=== PATIENT | female | born 1940 | race Caucasian/White ===

== ENCOUNTER 2024-03-31 16:40 | Inpatient (IN) | payer MEDICARE ==
[~2024-03-31] VITALS: Ht 162.6 cm; Wt 61.8 kg
[2024-03-31 16:30] VITALS: BP 175/102; PULSE 95; TEMP 100.1
[~2024-03-31 16:40] MED LIST: FERROUS SU325 MG/TAB PO; FOLIC ACID 40400 MCG PO; GLYCOLAX17 GM/DOSE PO; HCTZ 25MG25 MG PO; SINGULAIR10 MG PO; SPIRIVA HANDIH18 MCG IH; THEO-24 30300 MG/CAP PO; THEO-24300 MG PO; VENTOLIN0.09 MG IH; VITAMIN C BUFF500 MG PO
[2024-03-31] MEDS ORDERED: CALCIUM 600-D 61 TAB PO (16:58)
[2024-03-31] MEDS ORDERED: ULTRAM 50MG TAB50 MG PO (16:59)
[2024-03-31] MEDS ORDERED: CELEXA 20MG20 MG/TAB PO (17:00)
[2024-03-31] MEDS ORDERED: TYLENOL 500MG500 MG PO (17:00)
[2024-03-31] MEDS ORDERED: COZAAR 50MG50 MG/TAB PO (17:02)
[2024-03-31] MEDS ORDERED: PHENERGAN W/CO120 M1 PO (17:04)
[2024-03-31] MEDS ORDERED: BROVANA15 MCG/2 M IH (17:04)
[2024-03-31] MEDS ORDERED: PULMICORT0.5 MG/2 M IH (17:05)
[2024-03-31] MEDS ORDERED: PROAIR HFA0.09 MG/AC IH (17:07)
[2024-03-31] MEDS ORDERED: RT SPIRIVA18 MCG IH (17:08)
[2024-03-31] MEDS ORDERED: K-DUR20 MEQ PO (17:09)
[2024-03-31] MEDS ORDERED: CARTIA XT120 MG PO (17:10)
[2024-03-31] MEDS ORDERED: MIRALAX PA17 GM/Dose PO (17:11)
[2024-03-31] MEDS ORDERED: TESSALON P100 MG/CAP PO (17:11)
[2024-03-31] MEDS ORDERED: Morphine 4 MG/ML VIAL IV PRN (17:15)
[2024-03-31] MEDS ORDERED: Naloxone 0.4 MG/ML VIAL IV PRN (17:15)
[2024-03-31] MEDS ORDERED: oxyCODONE 5 MG TAB PO PRN (17:15)
[2024-03-31] MEDS ORDERED: D5 1/2 NS 1,000 ML IV SCH (17:15)
[2024-03-31] MEDS ORDERED: Polyethylene Glycol 3350 17 GM PDS PO SCH (17:52)
[2024-03-31] MEDS ORDERED: Albuterol/Ipratropium 3 MG-0.5 MG/3 ML Neb Soln IH PRN (18:00)
[2024-03-31] MEDS ORDERED: traMADol 50 MG TAB PO PRN (18:00)
[2024-03-31 18:10] VITALS: BP 158/93
[2024-03-31] MEDS ORDERED: Acetaminophen 500 MG TAB PO SCH (18:12)
[2024-03-31] MEDS ORDERED: Formoterol Neb Soln 20 MCG/2 ML UD IH SCH (19:00)
[2024-03-31] MEDS ORDERED: Budesonide Neb Susp 0.5 MG/2 ML AMP IH SCH (19:00)
[2024-03-31 19:32] VITALS: BP 149/81; PULSE 93; TEMP 98.3
[2024-03-31 20:00] VITALS: BP_SYST 149
[2024-03-31] MEDS ORDERED: Theophylline ER (24-HR) 300 MG TAB-CAP PO SCH (21:00)
[2024-03-31] MEDS ORDERED: Calcium Carb/Vit D3 500 mg-200 Units TAB PO SCH (21:00)
[2024-03-31 21:38] LABS: BASO % 0.3 % (0.0-2.0); GRAN # 9.3 K/mm3 (1.4-6.5); GRAN % 86.9 % (42.2-75.2); HEMATOCRIT 37.3 % (37.0-47.0); LYMPH # 0.7 K/mm3 (1.2-3.4); LYMPH % 6.1 % (20.0-51.0); MEAN CELL VOLUME 97 fl (80.0-100.0); MEAN CORPUSCULAR HEMOGLOBIN 31 pg (27-31); MEAN CORPUSCULAR HGB CONC 32 g/dl (33.0-37.0); MEAN PLATELET VOLUME 11.7 fl (7.4-10.4); MONO # 0.7 K/mm3 (0.1-0.6); MONO % 6.4 % (1.7-9.3); PLATELET COUNT 144 K/mm3 (130-400); RED BLOOD COUNT 3.83 M/mm3 (4.10-5.30); REDCELL DISTRIBUTION WIDTH-CV 12.6 % (11.5-14.5)
[2024-03-31 21:40] LABS: PROTHROMBIN TIME 11.3 SECONDS (9.7-12.8)
[2024-03-31 23:10] VITALS: BP 158/73; PULSE 89; TEMP 98
[2024-04-01] VITALS (17 sets, daily range): BP systolic 92–158; BP diastolic 54–80; PULSE 71–112; TEMP 97.7–100.2
[2024-04-01 06:13] LABS: HEMOGLOBIN 10.4 g/dl (12.5-16.0)
[2024-04-01 06:27] LABS: HEMATOCRIT 32.7 % (37.0-47.0)
--- NOTE | 2024-04-01 07:50 | NUR ---
PT RESTING IN BED, ALERT AND ORIENTED X1 TO SELF. PT IS VERY FORGETFUL. HAD TO EXPLAIN TO PT THAT HER HIP WAS BROKEN MULTIPLE TIMES WHILE IN THE ROOM. PT RATES PAIN 8/10 IN THE LEFT HIP. GAVE PT MORPHINE. ASSESSED PT. HELD ORAL MEDS WHILE NPO. ICE PACK TO LEFT HIP. PT IN FALL PRECAUTIONS. Q2H TURNS. NO OTHER COMPLAINTS AT THIS TIME. CALL LIGHT WITHIN REACH.
[2024-04-01] MEDS ORDERED: LR 1,000 ML IV SCH (08:30)
[2024-04-01] MEDS ORDERED: Losartan 50 MG TAB PO SCH (09:00)
[2024-04-01] MEDS ORDERED: Montelukast 10 MG TAB PO SCH (09:00)
[2024-04-01] MEDS ORDERED: dilTIAZem CD (24-HR) 120 MG CAP PO SCH (09:00)
[2024-04-01] MEDS ORDERED: Tiotropium 2.5 MCG Respimat MDI IH SCH (09:00)
[2024-04-01] MEDS ORDERED: Citalopram 20 MG TAB PO SCH (09:00)
[2024-04-01] MEDS ORDERED: Midazolam 2 MG/2 ML VIAL ONE (09:58)
[2024-04-01] MEDS ORDERED: NS 10 ML IV ONE (09:58)
[2024-04-01] MEDS ORDERED: fentaNYL 50 MCG/ML 2 ML VIAL ONE (09:58)
[2024-04-01] MEDS ORDERED: Lidocaine PF 2% (20 MG/ML) 5 ML VIAL ONE (09:58)
--- NOTE | 2024-04-01 10:12 | NUR ---
PT TO OR
[2024-04-01] MEDS ORDERED: Morphine 2 MG/1 ML VIAL [PACU/SDC ONLY] IV PRN (11:30)
[2024-04-01] MEDS ORDERED: HYDROmorphone 1 MG/1 ML SYRINGE [PACU/SDC ONLY] IV PRN (11:30)
[2024-04-01] MEDS ORDERED: Ondansetron 4 MG/2 ML VIAL IV PRN ×2 (11:30→12:00)
[2024-04-01] MEDS ORDERED: ePHEDrine 50 MG/ML VIAL ONE (11:35)
[2024-04-01] MEDS ORDERED: Topical Skin Adhesive 1 EACH (1 ML) TOP ONE (11:35)
[2024-04-01] MEDS ORDERED: Phenylephrine 10 MG/ML VIAL ONE (11:53)
[2024-04-01] MEDS ORDERED: Magnes Hydrox (MOM) 80 MG/ML 30 ML CUP PO PRN (12:00)
[2024-04-01] MEDS ORDERED: ePHEDrine 50 MG/ML VIAL IM SCH (13:00)
--- NOTE | 2024-04-01 13:49 | NUR ---
PT BACK FROM OR AT 1330. VITALS STABLE. X3 SURGICAL SITES WITH TODD AND TEGADERM CLEAN DRY INTACT. PT ABLE WIGGLE TOES AND CAN FEEL TOUCH ON FEET. SCD'S ON. PT IS A BASELINE ORIENTATION TO SELF. 2L OF OXYGEN ON. TAKING SIPS OF WATER
--- NOTE | 2024-04-01 13:51 | NUR ---
Messenger Office spoke with patient's niece/DPOA-HC, Brina (ph#[phone]) to complete initial intake as patient has a history of dementia and was not fully oriented per nursing assessments. Brina advised patient lives at [facility] in [place] and has been there about two or three years. Brina advised patient's primary care provider is the hospice physician through [facility]. Patient did sees Dr. Lay at the [facility] prior to transfer. Patient does not normally use any DME for ambulation but does use oxygen continuously. Brina advised patient does not do a lot of walking but can normally get around fairly independently. Patient does get assistance from staff with ADLS per Brina. Brina confirmed she is DPOA-HC and stated she would email SARTHAK a copy for patient's chart. SARTHAK discussed discharge planning with Brina who stated she understands patient will likely need to go to a half-way after surgery, however she hopes eventually patient can return to [facility] if she is able. Brina stated she would like referrals sent to [facility] in [place]. Brina is clear that she does not want patient to go to [facility] in [place]. SARTHAK contacted both [facility] and [facility] then sent referrals to each. SARTHAK also contacted Melissa at [facility] and faxed clinical updates. SARTHAK then contacted [facility] who advised they have discharged patient at this time as she was admitted and having surgery today. Discharge Plan: surgery today, referrals sent to [facility]
[2024-04-01] MEDS ORDERED: Melatonin 3 MG TAB PO PRN (21:00)
[2024-04-01] MEDS ORDERED: Sennosides/Docusate 8.6-50 MG TAB PO SCH (21:00)
--- NOTE | 2024-04-01 21:00 | NUR ---
PT ALERT, ORIENTED TO SELF & PLACE. VSS ON 2L/NC. X3 DRESSINGS TO LEFT HIP ARE CDI. PT REPORTS NO PAIN AT THIS TIME. WALTON TO DD WITH CLEAR MAR OUTPUT. IVF INFUSING TO RT WRIST. BLE SCD ON. PT DENYING FURTHER NEEDS. CALL LIGHT IN REACH
[2024-04-01] MEDS ORDERED: ceFAZolin 1 G in Water For Injection,Sterile 10 ML IV SCH (22:00)
[2024-04-02] VITALS (12 sets, daily range): BP systolic 98–139; BP diastolic 60–86; PULSE 79–110; TEMP 97.9–98.6
--- NOTE | 2024-04-02 05:51 | NUR ---
PT RESTING IN BED. REPORTS PAIN 04/13 THIS MORNING, GAVE PRN OXYCODONE PER MAR & ICEPACK. DENIES OTHER NEEDS. CALL LIGHT IN REACH & FALL PRECAUTIONS IN PLACE
[2024-04-02 06:08] LABS: BASO % 0.3 % (0.0-2.0); EOS % 0.6 % (0.0-4.0); GRAN # 5.4 K/mm3 (1.4-6.5); GRAN % 76.1 % (42.2-75.2); LYMPH # 0.8 K/mm3 (1.2-3.4); LYMPH % 11.7 % (20.0-51.0); MEAN CELL VOLUME 98 fl (80.0-100.0); MEAN CORPUSCULAR HGB CONC 32 g/dl (33.0-37.0); MEAN PLATELET VOLUME 11.9 fl (7.4-10.4); MONO # 0.8 K/mm3 (0.1-0.6); PLATELET COUNT 102 K/mm3 (130-400); RED BLOOD COUNT 2.62 M/mm3 (4.10-5.30); REDCELL DISTRIBUTION WIDTH-CV 12.6 % (11.5-14.5)
[2024-04-02 06:09] LABS: HEMATOCRIT 25.6 % (37.0-47.0); MEAN CORPUSCULAR HEMOGLOBIN 32 pg (27-31)
[2024-04-02 06:11] LABS: HEMOGLOBIN 8.3 g/dl (12.5-16.0)
[2024-04-02 06:28] LABS: CALCIUM 9.4 mg/dL (8.4-10.2); CREATININE, serum 0.8 mg/dL (0.57-1.11); POTASSIUM 3.4 mEq/L (3.5-4.5)
--- NOTE | 2024-04-02 08:00 | NUR ---
Pt. sitting up in bed. Pt. is alert and confused. Shift assessment complete. Pt. denies pain at this time. Dressing to lt. hip CDI. Pt. denies further needs, call light within reach, bed alarm on.
[2024-04-02] MEDS ORDERED: Ascorbic Acid 500 MG TAB PO SCH (09:00)
[2024-04-02] MEDS ORDERED: Calcium Carbonate 500 MG TAB PO SCH (09:00)
[2024-04-02] MEDS ORDERED: Multivitamin TAB PO SCH (12:00)
--- NOTE | 2024-04-02 12:43 | NUR ---
Sweatband Perforator spoke with Gem at [facility] who advised they are not in network with [facility]. SARTHAK then followed up with Ivy at [facility] and faxed clinical updates. They are in network and she advised she would review the referral. After PT eval was in, SARTHAK faxed clinicals to [facility] to request Auth. SARTHAK contacted patient's niece, Brina to provide update. Discharge Plan: SNF, pending facility acceptance and insurance authorization
--- NOTE | 2024-04-02 21:00 | NUR ---
PT ALERT & ORIENTED TO SELF LAYING IN BED. VSS ON 2L/NC. DENYING PAIN OR N/V. X3 DRESSINGS TO LEFT HIP CDI. WALTON TO DD WITH YELLOW OUTPUT. INT TO RIGHT WRIST PATENT. BLE SCDS ON. PT DENIES NEEDS. CALL LIGHT IN REACH & FALL PRECAUTIONS IN PLACE
[2024-04-03] VITALS (18 sets, daily range): BP systolic 93–149; BP diastolic 57–76; PULSE 86–105; TEMP 97.4–98.4
[2024-04-03 06:32] LABS: BASO % 0.5 % (0.0-2.0); EOS # 0.1 K/mm3 (0.0-0.7); EOS % 2.2 % (0.0-4.0); GRAN # 4.4 K/mm3 (1.4-6.5); GRAN % 73.5 % (42.2-75.2); LYMPH # 0.8 K/mm3 (1.2-3.4); LYMPH % 13.6 % (20.0-51.0); MEAN CELL VOLUME 100 fl (80.0-100.0); MEAN CORPUSCULAR HGB CONC 32 g/dl (33.0-37.0); MEAN PLATELET VOLUME 12.7 fl (7.4-10.4); MONO # 0.6 K/mm3 (0.1-0.6); MONO % 9.9 % (1.7-9.3); PLATELET COUNT 94 K/mm3 (130-400); RED BLOOD COUNT 2.29 M/mm3 (4.10-5.30); REDCELL DISTRIBUTION WIDTH-CV 12.7 % (11.5-14.5)
[2024-04-03 06:33] LABS: HEMATOCRIT 22.8 % (37.0-47.0); HEMOGLOBIN 7.3 g/dl (12.5-16.0); MEAN CORPUSCULAR HEMOGLOBIN 32 pg (27-31)
[2024-04-03 06:51] LABS: CALCIUM 9.2 mg/dL (8.4-10.2); CREATININE, serum 0.69 mg/dL (0.57-1.11); POTASSIUM 3.6 mEq/L (3.5-4.5)
--- NOTE | 2024-04-03 09:25 | NUR ---
Pt. sitting up in bed. Pt. is alert and confused, assessment complete. INT to rt. wrist patent. Dressing CDI to lt. hip. Pt. states "It hurts right here." and points to lt. hip. Pt. reminded that she has a fx'd hip and it was fixed. Pt. continues to ask where she is several times. Gave pain meds. Pt. denies further needs.
[2024-04-03] MEDS ORDERED: Folic Acid 1 MG TAB PO SCH (09:30)
[2024-04-03] MEDS ORDERED: Cyanocobalamin (Vit B-12) 1,000 MCG TAB PO SCH (09:30)
[2024-04-03] MEDS ORDERED: Ferrous Sulfate 325 MG TAB PO SCH (12:00)
--- NOTE | 2024-04-03 16:39 | NUR ---
After calling multiple times and refaxing, SARTHAK was able to confirm [facility] had clinicals for review and authorization for [facility] is pending. SARTHAK contacted Ivy at [facility] who advised they can clinically accept patient. SARTHAK Sahra faxed clinical updates for their review. SARTHAK contacted patient's niece, Brina who is agreeable to plan. Brina will be unavailable until 1300 tomorrow, however stated if patient is approved to go, she is okay with transportation arrangements being made before she is available. Brina requested EMS transport for patient. SARTHAK explained this would be an out of pocket cost and Brina is agreeable to this. Discharge Plan: [facility], pending auth
--- NOTE | 2024-04-03 19:30 | NUR ---
Order clarified for blood transfusion order. To be given JOSE. Notified lab of need for blood product. Will transfuse once ready.
--- NOTE | 2024-04-03 20:00 | NUR ---
Blood product is ready for pickup. Patients INT to right forearm is infiltrated. Attempted to restart by this nurse x2. Notified supervisor malt house of need for IV placement. Will be up to place.
--- NOTE | 2024-04-03 20:46 | NUR ---
22g placed to right forearm x2 attempts by supervisor char house.
--- NOTE | 2024-04-03 21:06 | NUR ---
Blood transfusion started at this time.
--- NOTE | 2024-04-03 21:21 | NUR ---
Blood transfuion increased to 120mls/hr. No s/s of reaction noted this far. Will monitor.
--- NOTE | 2024-04-03 23:57 | NUR ---
Blood transfusion completed at this time. Vitals remained stable. No s/s of transfusion reaction noted.
[2024-04-04] VITALS (12 sets, daily range): BP systolic 119–159; BP diastolic 64–84; PULSE 87–104; TEMP 97.4–98.4
--- NOTE | 2024-04-04 01:17 | NUR ---
Patient c/o pain to left hip-rating pain 6/10 on pain scale-described as constant throbbing. Tramadol given per dr order. Will monitor.
[2024-04-04 02:35] LABS: CALCIUM 9.5 mg/dL (8.4-10.2); CREATININE, serum 0.76 mg/dL (0.57-1.11); POTASSIUM 3.8 mEq/L (3.5-4.5)
--- NOTE | 2024-04-04 03:16 | NUR ---
Lab notified this nurse that CBC sample had clotted and a redraw is necessary. At bedside to do now.
[2024-04-04 03:25] LABS: BASO % 0.5 % (0.0-2.0); EOS # 0.2 K/mm3 (0.0-0.7); EOS % 2.3 % (0.0-4.0); GRAN % 76.9 % (42.2-75.2); LYMPH # 0.9 K/mm3 (1.2-3.4); LYMPH % 11.8 % (20.0-51.0); MEAN CORPUSCULAR HGB CONC 34 g/dl (33.0-37.0); MEAN PLATELET VOLUME 11.9 fl (7.4-10.4); MONO # 0.6 K/mm3 (0.1-0.6); MONO % 8.1 % (1.7-9.3); PLATELET COUNT 118 K/mm3 (130-400); REDCELL DISTRIBUTION WIDTH-CV 14.5 % (11.5-14.5)
[2024-04-04 03:26] LABS: HEMATOCRIT 27.8 % (37.0-47.0); HEMOGLOBIN 9.5 g/dl (12.5-16.0); MEAN CELL VOLUME 93 fl (80.0-100.0); MEAN CORPUSCULAR HEMOGLOBIN 32 pg (27-31)
--- NOTE | 2024-04-04 05:11 | NUR ---
Patient did not sleep well this shift. Did receive one unit of blood hgb up to 9.4. Received tramadol for pain x1 with good pain control. Still is confused. New INT placed to right forearm. Has voided several times this shift and had a BM. Denies current questions/concerns. Call light in reach. Will monitor.
--- NOTE | 2024-04-04 06:40 | NUR ---
Pt laying in bed. Bed alarm on and call light in reach. Pt requested not to get out of bed this AM. No further needs.
--- NOTE | 2024-04-04 08:33 | NUR ---
Pt laying in bed. Alert. Pt able to answer all orientation questions, however Pt asks same questions minutes apart due to forgetfullness. S1S2. Clear lungs, bases diminished, 1 L via NC. ABD flat and soft with audible bowel sounds. Palpable pulses in all extremities with weakness. Tremors in bilateral hands. Pt denies pain, headache. PCT reported to this RN and charge nurse, Pt choked on sausage abby and face turned pale. Nurse assessed Pt and Pt's color returned to normal. Pt coughed sausage abby up and thought she was nausous. Nurse went to get Zofran, Pt decined Zofran when this RN back in room. Pt swollowed pills and water without issues. Call light in reach and bed alarm on.
[2024-04-04] MEDS ORDERED: dilTIAZem CD (24-HR) 120 MG CAP PO SCH (10:00)
--- NOTE | 2024-04-04 11:30 | NUR ---
PATIENT YELLING OUT AND LEANING OVER BED. PATIENT SAYING SHE HAS TO PEE. PLACED ON BED DONALD WITH 1-2 ASSIST.
--- NOTE | 2024-04-04 12:40 | NUR ---
Pt asked to speak with nurse. Pt had questions about where she was. Reoriented Pt. Pt wondered why she was in hospital - explained Pt had surgery. Pt wondering where she was. Reoriented Pt 4 times. Pt wanted to speak with family. Attempted to call Pt's rosalva twice. Pt stated she has a sister and brother, not listed. However, she remembered they may have passed but Pt unsure. Reoriented Pt and treated pt's pain with medication and ice packs. reinforced Pt to eat some lunch. Offerred snacks.
[2024-04-04] MEDS ORDERED: FERROUS SU325 MG/TAB PO (15:01)
[2024-04-04] MEDS ORDERED: B-121000 MCG PO (15:02)
[2024-04-04] MEDS ORDERED: VITAMIN C500 MG PO (15:02)
[2024-04-04] MEDS ORDERED: DUO-KAPS1 CAP PO (15:02)
[2024-04-04] MEDS ORDERED: FOLIC ACID 11 MG/TA1 PO (15:02)
[2024-04-04] MEDS ORDERED: SENEXON-S 50-81 EACH PO (15:03)
[2024-04-04] MEDS ORDERED: ULTRAM 50MG TAB50 MG PO (15:17)
[2024-04-04] MEDS ORDERED: ROXICODONE 55 MG/TAB PO (15:17)
--- NOTE | 2024-04-04 15:32 | NUR ---
Pt laying in bed. Pt refused Tylenol as she believes she just had it an hour ago. Educated Pt she has not had Tylenol since 0800. Pt insisted she took tylenol 1 hour prior. Pt reoriented to location and reason for stay. Call light in reach and bed alarm on.
--- NOTE | 2024-04-04 16:32 | NUR ---
Civil Division Deputy Sheriff was notified by [facility] that auth was approved (ref #[id number]). SARTHAK updated Ivy at [facility] who advised she is meeting with family today and they can accept tomorrow. SARTHAK contacted Brina to provide update and she again was agreeable to private pay ems transport. SARTHAK contacted [facility] and they declined to do transport for patient. SARTHAK scheduled a 1030 pick up attendant time with [facility] and got an estimated cost of 1375. SARTHAK contacted Ivy to provide update on transport time and was she in a meeting with family so she put them SW on speakerphone. SARTHAK reviewed estimated cost and family is agreeable. Family's billing address is [address], [place], [address] and SARTHAK provided this to Perry at [facility]. Discharge Plan: [facility] tomorrow via private pay EMS
--- NOTE | 2024-04-04 20:30 | NUR ---
Assessment complete. Patient is alert but only oriented to self. Has called several times to ask where she is and why. Re-oriented several times. VS remain stable. C/O pain to left hip-described as constant throbbing-rating pain 5/10 on pain scale. Tramadol given per dr order. INT to right forearm flushes without difficulty-no s/s of infiltration noted. TUSHAR/SCD on. Refused ice pack. Dressing to left hiop-gauze/tegaderm-CDI. Patient states she is very tired and did not sleep well last night. Has been up to commode to void. Tolerating PO. Plan of care discussed for this shift to include meds/pain control/calling for questions/concerns. Verbalizes understanding. Call light in reach. Will monitor.
[2024-04-05 00:26] VITALS: BP_SYST 119
--- NOTE | 2024-04-05 00:30 | NUR ---
Patient resting with eyes closed. NO s/s of pain or discomfort noted. Will monitor.
[2024-04-05 03:38] VITALS: BP 125/73; PULSE 73; TEMP 97.9
[2024-04-05 03:59] VITALS: BP_SYST 125
--- NOTE | 2024-04-05 05:23 | NUR ---
Patient slept better this shift compared to last. Received tramadol x1 for left hip pain with good results. Denied nausea/shortness of breath. VS stable. Patient still confused-reoriented several times. Right FA INT flushes without difficulty. UP to commode several times and voiding without difficulty. Denies current questions/concerns. Call light in reach. Will monitor.
[2024-04-05 06:18] LABS: BASO % 0.7 % (0.0-2.0); EOS # 0.3 K/mm3 (0.0-0.7); EOS % 4.5 % (0.0-4.0); GRAN # 3.9 K/mm3 (1.4-6.5); GRAN % 66.6 % (42.2-75.2); MEAN CORPUSCULAR HGB CONC 33 g/dl (33.0-37.0); MEAN PLATELET VOLUME 12.5 fl (7.4-10.4); MONO # 0.6 K/mm3 (0.1-0.6); MONO % 10.7 % (1.7-9.3); PLATELET COUNT 59 K/mm3 (130-400); RED BLOOD COUNT 3.07 M/mm3 (4.10-5.30); REDCELL DISTRIBUTION WIDTH-CV 14.9 % (11.5-14.5)
[2024-04-05 06:26] LABS: CALCIUM 9.5 mg/dL (8.4-10.2); CREATININE, serum 0.74 mg/dL (0.57-1.11); POTASSIUM 3.9 mEq/L (3.5-4.5)
--- NOTE | 2024-04-05 06:30 | NUR ---
Pt sleeping in bed. Call light in reach, bed alarm on.
--- NOTE | 2024-04-05 06:42 | NUR ---
Bedside shift report given to JAMIE Sánchez.
[2024-04-05 06:50] LABS: HEMATOCRIT 30.2 % (37.0-47.0); HEMOGLOBIN 9.8 g/dl (12.5-16.0); MEAN CELL VOLUME 98 fl (80.0-100.0); MEAN CORPUSCULAR HEMOGLOBIN 32 pg (27-31)
[2024-04-05 07:20] VITALS: BP 132/63; PULSE 79; TEMP 98
[2024-04-05 09:00] VITALS: BP_SYST 132
--- NOTE | 2024-04-05 10:25 | NUR ---
Pt laying in bed. completed bed bath and pericare. Dressed Pt for transport. Changed dressings on L hip. 4x4 gauze and tegaderm. incisions are WA and minimal bruising around middle incision. Steristrips in place. No further needs. Call light in reach and bed alarm on.
--- NOTE | 2024-04-05 10:32 | NUR ---
Pt laying in bed. Pt alert and oriented to self. Reoriented to place, time, reason. Assessment complete. Pt complaining of hip hurting and "I don't know why." Reoriented Pt. Administered Pain meds. Call light in reach and bed alarm on.
--- NOTE | 2024-04-05 11:06 | NUR ---
Pt transferred to [facility] via [facility]. No further needs.
--- NOTE | 2024-04-05 11:22 | NUR ---
Called report to nurse at [facility].
--- NOTE | 2024-04-05 12:37 | NUR ---
Speech Pathologist Assistant contacted Ivy at [facility] and confirmed they can accept today. SARTHAK contacted [facility] and confirmed transport time of 1030. SARTHAK was advised the crew would bring an ABN to go over with patient's niece via phone. SARTHAK contacted patient's niece, Brina to review IM. Brina verbalized understanding and gave verbal consent as signature. Brina also is agreeable to transport time. Once [facility] arrived, SARTHAK and the crew members contacted Brina and put her on speakerphone. SARTHAK reviewed ABN and nagy of [phone]. Brina verbalized understanding and gave consent as signature. SARTHAK and crew members signed as witnesses. SARTHAK sent discharge orders to Ivy via secure email.
== END 2024-04-05 11:22 | DRG 481 ==
LOC: SURG 16:40
PROVIDERS: Physician Assistant; ADMIT Internal Medicine
PROC: 0QS736Z Reposition Left Upper Femur with Intramedullary Internal Fixation Device, Percutaneous Approach (ICD-10-PCS; principal; 2024-03-31)
DX: M80.052A Age-related osteoporosis with current pathological fracture, left femur, initial encounter for fracture (principal); D62 Acute posthemorrhagic anemia; J96.11 Chronic respiratory failure with hypoxia; M19.90 Unspecified osteoarthritis, unspecified site; W18.30XA Fall on same level, unspecified, initial encounter; E87.6 Hypokalemia; J44.9 Chronic obstructive pulmonary disease, unspecified; I10 Essential (primary) hypertension; F03.90 Unspecified dementia, unspecified severity, without behavioral disturbance, psychotic disturbance, mood disturbance, and anxiety; F32.A Depression, unspecified; Z66 Do not resuscitate
CPT/HCPCS: A4314; A9270; A9284; C1713; J0665; J0690; J1650; J2250; J2270; J2371; J2704; J2795; J3010; J7120; P9016